=== PATIENT | male | born 1955 | race Caucasian/White ===

== ENCOUNTER → 2025-02-10 09:37 | Outpatient (REF) | payer MEDICARE, OTHER, SELFPAY | LOC: RAD 09:37 | PROVIDERS: ATTENDING PHYSICIAN Physician Assistant | DX: M25.551 Pain in right hip (principal) | CPT/HCPCS: 73502 ==

== ENCOUNTER 2025-05-24 16:18 | Emergency (ER) | payer MEDICARE, OTHER, SELFPAY ==
[2025-05-24 16:22] VITALS: BP 140/75
[2025-05-24 17:03] LABS: Hematocrit 44.6 % (39.0-52.0); Hemoglobin 14.7 g/dL (13.0-18.0); Mean Corp Hgb Conc. 33.0 g/dL (33.0-37.0); Mean Corpuscular Volume 85.9 fL (80.0-94.0); Nucleated Red Blood Cells % 0 % (-); Platelet Count 220 10^3/uL (130-400); Red Cell Dist. Width 13.2 % (11.5-14.5)
[2025-05-24 17:10] LABS: INR 0.96; PT 13.1 Sec (11.4-14.6)
[2025-05-24 17:11] LABS: APTT 24.1 Sec (23.4-35.0)
[2025-05-24 17:33] LABS: ALT (SGPT) 36 U/L (0-50); AST (SGOT) 24 U/L (17-59); Albumin 4.6 g/dl (3.5-5.0); Alkaline Phosphatase 54 U/L (38-126); Blood Urea Nitrogen 20 mg/dl (9-20); Calcium 10.1 mg/dl (8.4-10.2); Carbon Dioxide 30 mmol/L (22-30); Chloride 98 mmol/L (98-107); Glucose 120 mg/dl (70-99); Potassium 3.7 mmol/L (3.5-5.1); Sodium 137 mmol/L (135-145); Total Protein 7.1 g/dl (6.3-8.2); eGFR > 60.00
[2025-05-24 19:46] VITALS: BP 120/70
[2025-05-24 20:13] VITALS: BMI 26.4
[2025-05-24 20:26] VITALS: BP 128/76
--- NOTE | 2025-05-24 20:36 | ED.CVA ---
History of Present Illness
General
Chief Complaint: CVA/TIA Symptoms
Source: patient
Time Seen by Provider: 05/24/25 20:14
Onset of Stroke Symptoms
Onset of symptoms known: No
Time pt last seen normal is known: No
History of Present Illness
History of Present Illness:
69-year-old male presents to the emergency room for evaluation after having periods of staring and unresponsiveness. Symptoms lasted about 5 minutes or so and then he gradually returned to normal. He does not have a complete loss of consciousness.
He does not have any observed tonic-clonic activity. Patient had an episode about 2 weeks ago for which he was seen at [facility]. A workup which was negative at that time. He followed up with his primary care provider who recommended an
EEG. The patient called the scheduled a couple times but was on hold for too long and hung up. Today he has had 2 episodes. In between he is back to baseline. No focal weakness numbness or tingling. Patient denies any head trauma.
Past History
Past History
ED Past Medical History: HTN
Social History
Tobacco: Non-smoker
Personal:
Employment: Employed
Phy Exam
Physical Exam
Physical Exam:
General: Awake, Alert, Oriented X3. No acute distress.
Vitals: unremarkable
Head: Atraumatic
Eyes: Pupils equal, EOMI
Throat: Airway intact, no exudates
Neck: Trachea midline
Lungs: Clear and equal b/l
Heart: Regular rate, no murmurs
Abd: Soft, Nontender, No pulsatile mass
Neuro: Cranial nerves intact, muscle strength equal bilaterally, cerebellar exam normal
Skin: Warm, dry, no rash
Extremities: pulses equal b/l, no edema
Course
Orders/Labs/Results
Orders:
Orders
05/24/25 16:36
Complete Blood Count/With Diff Urgent
Comprehensive Metabolic Panel Urgent
PTT Urgent
Prothrombin Time Urgent
05/24/25 20:35
Levetiracetam [Keppra] 1,000 mg PO NOW STA
Abnormal Lab Results
05/24/25
16:36
Abs Immat Gran (auto) 0.1 H 10^3/uL
(0-0.05)
Absolute Neuts (auto) 8.3 H 10^3/uL
(1.4-6.5)
Absolute Monos (auto) 0.7 H 10^3/uL
(0.1-0.6)
Immature Gran % 0.7 H %
(0-0.5)
Neutrophils % 80.1 H %
(42.2-75.2)
Lymphocytes % 11.5 L %
(20.5-51.1)
Glucose 120 H mg/dl
(70-99)
05/24/25 16:36
05/24/25 16:36
Vital Signs
Initial and Last Documented VS:
Initial Vital Signs
Temp Pulse Resp BP Pulse Ox
98.5 F 67 18 140/75 98
05/24/25 16:22 05/24/25 16:22 05/24/25 16:22 05/24/25 16:22 05/24/25 16:22
Last Documented Vital Signs
Temp Pulse Resp BP Pulse Ox
98.7 F 58 12 137/79 100
05/24/25 19:46 05/24/25 20:45 05/24/25 20:45 05/24/25 21:00 05/24/25 20:51
MDM/Problems Addressed
Differential Diagnosis Includes:
Simple seizures, transient global amnesia, electrolyte abnormality, cognitive impairment
MDM/Problems Addressed:
Patient presents with episodes that sound very much like partial seizures. Discussed with Dr. Howell. He agrees with starting Keppra at this point. Informed patient we will be required to filiform with pen that that he is unable to drive until
cleared by neurology. No imaging performed here as the patient had a CT scan of the brain just a couple weeks ago. Rather than repeating a CT scan the patient should probably have an MRI of the brain as an outpatient. Patient also should schedule
the EEG as an outpatient.
*Pulse Oximetry
SaO2: 99
Oxygen Mode of Delivery: Room air
Patient hypoxic: no
*Critical Care Note
Total Time (30-74mins, 75-104mins- exclusive of procedures): Not Applicable
ED Attending Note
-
Portions of this chart may have been created with voice recognition software.� Occasional wrong word or��sound alike� substitutions may have occurred due to the inherent limitations of voice recognition software.
Discharge Plan
Departure
Patient Disposition: Home (Routine Discharge)
Date of Disposition: 05/24/25
Time of Disposition: 20:36
Patient with high blood pressure during this ER visit?: No
Condition: Good
Discharge Problem:
Simple partial seizures
Instructions: Seizures in adults - ED discharge instructions
Prescriptions:
New
levetiracetam [Keppra] 500 mg tablet
500 mg PO BID Qty: 60 0RF
No Action
multivitamin 1 EACH tablet
1 ea PO DAILY
aspirin 81 MG tablet,delayed release (DR/EC)
81 mg PO DAILY
STOOL SOFTENER
1 tab PO DAILY
Patient Comments:
OTC-pt does not know dose
valsartan 80 MG tablet
80 mg PO DAILY
Triam/Hctz
1 tab PO DAILY
Patient Comments:
(Triam/Hctz 37.5/25 cap)
Referrals:
Makenna Shelton MD [Non-Admitting Privileges, Psychiatry]
Amado Gallagher MD [Active, Neurology]
Activity Restrictions/Additional Instructions:
Your symptoms are very suggestive of simple seizures. I discussed with our neurologist Dr. Gallagher and he has suggested we start a seizure medication, Keppra, which you should take twice a day. You need to follow up with neurologist.
Interventions
Interventions:
*Risk Screen - Suicide Last Done: 05/24/25 16:22
*General Assessment Last Done: 05/24/25 16:22
*Neglect/Abuse Screening Last Done: 05/24/25 20:14
*ED- Fall Risk Assessment Last Done: 05/24/25 20:14
*ED COVID-19 Vaccine History Last Done: 05/24/25 20:14
*Nursing Disposition Last Done: 05/24/25 21:24
ED- Pulmonary Assessment Last Done: 05/24/25 20:15
ED- Neurological Assessment Last Done: 05/24/25 20:15
ED- Cardiac Assessment Last Done: 05/24/25 20:15
ED Swallowing Screen Last Done: 05/24/25 20:15
Discharge Date and Time
Discharge Date/Time: 05/24/25 21:25
Print Language: ALGERIAN
[2025-05-24 21:00] VITALS: BP 137/79
[2025-05-24] MEDS: KEPPRA 1000 MG PO (21:07)
== END 2025-05-24 21:25 | disposition home or self-care (01) ==
LOC: EMR 16:18
PROVIDERS: Student in an Organized Health Care Education/Training Program; EMERGENCY PHYSICIAN Emergency Medicine; FAMILY PHYSICIAN Internal Medicine
DX: G40.109 Localization-related (focal) (partial) symptomatic epilepsy and epileptic syndromes with simple partial seizures, not intractable, without status epilepticus (principal); I10 Essential (primary) hypertension; Z79.82 Long term (current) use of aspirin
CPT/HCPCS: 99283; 80053; 85025; 85610; 85730

== ENCOUNTER → 2025-05-26 10:17 | Outpatient (REF) | payer MEDICARE, OTHER, SELFPAY ==
--- NOTE | 2025-05-26 15:45 | EEG.RPT ---
Electroencephalogram Report
Recording
Date of EE05/26/25
Type of EEG: Routine
Length of EEG recordin minutes
Done with Video Recording: Yes
Patient Status: Outpatient
Recording Conditions: Awake, Drowsy and Asleep
Hyperventilation Performed: No
Photic Stimulation Performed: Yes
Report
LESS THAN 1 HOUR EEG INTERPRETATION:
Unremarkable EEG for age
CLINICAL CORRELATION:
A normal EEG does not rule out a diagnosis of epilepsy. If clinical suspicion for seizure persists, a prolonged recording may be warranted.
Clinical correlation is advised.
METHODS:
A 21 channel digitized electroencephalogram (EEG) was performed using the 10/20 international system of electrode placement and one-lead of ECG recorded. The [employer] quantitative EEG system was utilized.
ELECTROENCEPHALOGRAPHER IMPRESSION(S):
Quality of study
Good
Background
There was an unremarkable anterior-posterior voltage gradient of alpha frequency.
With eye opening the background activity changed to a low voltage mixture of frequencies.
There were no significant asymmetries of background activity noted.
Sleep
Drowsiness present
Stage 1 present
Stage 2 present
Hyperventilation
No activation
Photic Stimulation
No activation
ECG
Normal sinus rhythm
== END ==
LOC: EEG 10:17
PROVIDERS: ATTENDING PHYSICIAN Internal Medicine
DX: G40.A09 Absence epileptic syndrome, not intractable, without status epilepticus (principal)
CPT/HCPCS: 95816

== ENCOUNTER → 2025-07-03 07:16 | Outpatient (REF) | payer MEDICARE, OTHER, SELFPAY | LOC: MRI 07:16 | PROVIDERS: ATTENDING PHYSICIAN Internal Medicine | DX: R56.9 Unspecified convulsions (principal); E78.2 Mixed hyperlipidemia | CPT/HCPCS: 70551 ==

== ENCOUNTER 2025-07-17 00:58 | Inpatient (IN) | payer MEDICARE, OTHER, SELFPAY ==
[2025-07-16 18:59] VITALS: BP 128/77
[2025-07-16 19:26] LABS: Hematocrit 42.7 % (39.0-52.0); Hemoglobin 14.4 g/dL (13.0-18.0); Mean Corp Hgb Conc. 33.7 g/dL (33.0-37.0); Mean Corpuscular Volume 84.1 fL (80.0-94.0); Nucleated Red Blood Cells % 0 % (-); Platelet Count 219 10^3/uL (130-400); Red Cell Dist. Width 12.5 % (11.5-14.5)
[2025-07-16 19:29] LABS: Urine Character Clear (Clear)
[2025-07-16 19:44] LABS: ALT (SGPT) 38 U/L (0-50); AST (SGOT) 25 U/L (17-59); Albumin 4.6 g/dl (3.5-5.0); Alkaline Phosphatase 55 U/L (38-126); Blood Urea Nitrogen 17 mg/dl (9-20); Calcium 10.1 mg/dl (8.4-10.2); Carbon Dioxide 30 mmol/L (22-30); Chloride 98 mmol/L (98-107); Glucose 155 mg/dl (70-99); Potassium 4.1 mmol/L (3.5-5.1); Sodium 135 mmol/L (135-145); Total Protein 7.1 g/dl (6.3-8.2); eGFR > 60.00
[2025-07-16 19:48] LABS: Urine Red Blood Cell 0-2 /HPF (0-2); Urine Squamous Cell 0-2 /LPF (Few); Urine White Cell 0-2 /HPF (0-5)
[2025-07-16 23:05] VITALS: BP 121/85
[2025-07-16 23:06] VITALS: BMI 27.6
--- NOTE | 2025-07-16 23:20 | ED.GENMED ---
History of Present Illness
<Shannon Robb PA-C - Last Filed: 07/17/25 02:17>
General
Chief Complaint: Seizure
Source: patient
Exam Limitations: none
Time Seen by Provider: 07/16/25 23:03
History of Present Illness
History of Present Illness:
69yoM with a history of hypertension and hyperlipidemia presenting for evaluation after an episode of confusion. Patient has been having intermittent episodes of confusion dating back to the end of April. The episodes are described as him 'blanking
out.' He apparently is able to have a conversation during the episodes but he is confused and asking repetitive questions. He has no associated convulsions or incontinence and he maintains his posture throughout the episode. He had an episode of
05/24/25 and was seen in the ED at that time. Symptoms were thought to be secondary to simple partial seizures and he was initiated on Keppra 500mg BID. He did not have another episode up until last night. The episode last night lasted about a
minute and he had another episode today which lasted for 5 minutes. He is now back to baseline and states he feels normal. He denies any headache, dizziness, speech disturbance, balance issues, weakness. He had an MRI brain on 07/03/25 which was
negative for acute findings. He also had an EEG which was reportedly normal. He has an appointment with neurologic scheduled in 1 month.
Past History
<Shannon Robb PA-C - Last Filed: 07/17/25 02:17>
Past History
ED Past Medical History: HTN
Social History
Tobacco: Non-smoker
Personal:
Employment: Employed
Phy Exam
<Shannon Robb PA-C - Last Filed: 07/17/25 02:17>
General Physical Exam
General Presentation: well appearing and no apparent distress
General Skin: warm and dry
General Habitus: normal
General Mental: alert
ENT Exam
ENT Exam: normocephalic
Eye Exam
Eye Exam: PERRL and conjunctiva normal
Cardiovascular Exam
Cardiovascular Exam: regular rate/rhythm and no murmur
Pulmonary Exam
Pulmonary Exam: lungs clear, no respiratory distress, no rales, no crackles, no rhonchi and no wheezing
Neurological Exam
Neurological Exam: alert, no motor deficits, speech normal and other (CN 2-12 intact. 5/5 strength in all extremities. Normal finger to nose and heel to swan bilaterally. )
Ya Coma Scale
Eye Opening: Spontaneous
Verbal Response: Oriented
Motor Response: Obeys Commands
GCS Total Score: 15
Skin Exam
Skin Exam: normal color and warm/dry
Psychiatric Exam
Psychiatric Exam: normal mood/affect
Course
Shantellelt;Shannon Robb PA-C - Last Filed: 07/17/25 02:17>
Orders/Labs/Results
Orders:
Orders
07/16/25 19:12
Complete Blood Count/With Diff Urgent
Comprehensive Metabolic Panel Urgent
07/16/25 19:20
Urinalysis Reflex To Culture Urgent
Date Specimen was Collected: 07/16/25
Time Specimen was Collected: 19:05
Urine Microscopic Reflex Cult Urgent
07/16/25 23:33
Ceribell [Rapid Point of Care EEG (ED/ICU ONLY)] Q1H
Indications for use:: Altered Mental Status
07/16/25 23:34
Levetiracetam Injectable [Keppra] 1,000 mg IV NOW STA
07/17/25 00:26
Admit/Transfer Patient As Directed
Co-Sign Provider:
Level of Care: Inpatient admission
Assign to:: ICU
Physician / Group: Luz
Diagnosis: Seizure
Reason for Hospitalization: Seizure
Expected length of stay greater than two midnights?: Yes
ELOS- Estimated Length of Stay in days: 2
I certify the patient meets the requirements for IP care: Yes
07/17/25 00:27
PRN Pain Medication Management As Directed
May give lesser potent ordered pain med per pt: Yes
preference::
Protocol:: Medication orders for pain may be administered in a
manner that supports deferring to patient preference
when the pt is:
- Requesting an ordered lesser potent pain medication.
Least to most potent pain medications are defined
as: acetaminophen < NSAID < tramadol < opioids
(morphine, oxycodone, hydromorphone).
- Requesting a lesser dose of the same medication IF
ORDERED.
- Requesting a less intrusive route of administration
if both routes are prescribed by the provider (PO <
IV).
07/17/25 00:28
Code Status As Directed
Resuscitation Status: Full Code
07/17/25 01:40
Acetaminophen [Tylenol] 650 mg PO Q4HPRN PRN
Bisacodyl [Dulcolax] 10 mg RECTAL [id number] PRN
Docusate W/Senna [Senokot-S] 1 tablet PO BIDPRN PRN
Polyethylene Glycol Powder [Miralax] 17 grams PO DAILYPRN PRN
07/17/25 01:40
Consult Notification Routine
Specialty to Notify: Neurology
NEUROLOGY CONSULT Routine
Consulting Provider: Arely Craft
Was physician already notified: No
Reason for consult: recurrent episodes of partial seizures, takes keppra at home.
Activity As Directed
Activity Level: With Assistance
Neurological Checks As Directed
Frequency: Per unit guidelines
Vital Signs As Directed
Frequency: Per unit guidelines
DX Deep Vein Thrombosis Video Routine
07/17/25 Breakfast
Regular
Basic Metabolic Panel IN AM
Complete Blood Count/No Diff IN AM
Creatine Phosphokinase IN AM
ESR [Erythrocyte Sed Rate] IN AM
Magnesium IN AM
TSH IN AM
07/17/25 08:00
Aspirin Low Dose EC [Aspir Low (Enteric Coated)] 81 mg PO DAILY
Triamterene/Hctz [Dyazide] 1 capsule PO DAILY
Valsartan [Diovan] 80 mg PO DAILY
07/17/25 11:00
Levetiracetam Injectable [Keppra] 1,000 mg IV Q12
07/17/25 18:00
Enoxaparin Sodium [Lovenox] 40 mg SC QPM
Abnormal Lab Results
07/16/25 07/16/25
19:12 19:20
Absolute Monos (auto) 0.7 H 10^3/uL
(0.1-0.6)
Neutrophils % 76.8 H %
(42.2-75.2)
Lymphocytes % 13.8 L %
(20.5-51.1)
Glucose 155 H mg/dl
(70-99)
Urine Urobilinogen 2+ A
(Neg - 1+)
Urine Bacteria (Reflex) Few A
(Negative)
Urine Albumin (Reflex) 1+ A
(Neg - Trace)
07/16/25 19:12
07/16/25 19:12
Vital Signs
Initial and Last Documented VS:
Initial Vital Signs
Temp Pulse Resp BP Pulse Ox
98.0 F 70 20 128/77 97
07/16/25 18:59 07/16/25 18:59 07/16/25 18:59 07/16/25 18:59 07/16/25 18:59
Last Documented Vital Signs
Temp Pulse Resp BP Pulse Ox
98.0 F 59 16 132/83 98
07/16/25 18:59 07/17/25 00:45 07/17/25 00:45 07/17/25 00:00 07/17/25 00:45
<Roscoe Zendejas MD - Last Filed: 07/16/25 23:35>
Orders/Labs/Results
Orders:
Orders
07/16/25 19:12
Complete Blood Count/With Diff Urgent
Comprehensive Metabolic Panel Urgent
07/16/25 19:20
Urinalysis Reflex To Culture Urgent
Date Specimen was Collected: 07/16/25
Time Specimen was Collected: 19:05
Urine Microscopic Reflex Cult Urgent
07/16/25 23:33
Ceribell [Rapid Point of Care EEG (ED/ICU ONLY)] Q1H
Indications for use:: Altered Mental Status
07/16/25 23:34
Levetiracetam Injectable [Keppra] 1,000 mg IV NOW STA
07/17/25 00:26
Admit/Transfer Patient As Directed
Co-Sign Provider:
Level of Care: Inpatient admission
Assign to:: ICU
Physician / Group: Luz
Diagnosis: Seizure
Reason for Hospitalization: Seizure
Expected length of stay greater than two midnights?: Yes
ELOS- Estimated Length of Stay in days: 2
I certify the patient meets the requirements for IP care: Yes
07/17/25 00:27
PRN Pain Medication Management As Directed
May give lesser potent ordered pain med per pt: Yes
preference::
Protocol:: Medication orders for pain may be administered in a
manner that supports deferring to patient preference
when the pt is:
- Requesting an ordered lesser potent pain medication.
Least to most potent pain medications are defined
as: acetaminophen < NSAID < tramadol < opioids
(morphine, oxycodone, hydromorphone).
- Requesting a lesser dose of the same medication IF
ORDERED.
- Requesting a less intrusive route of administration
if both routes are prescribed by the provider (PO <
IV).
07/17/25 00:28
Code Status As Directed
Resuscitation Status: Full Code
07/17/25 01:40
Acetaminophen [Tylenol] 650 mg PO Q4HPRN PRN
Bisacodyl [Dulcolax] 10 mg RECTAL [id number] PRN
Docusate W/Senna [Senokot-S] 1 tablet PO BIDPRN PRN
Polyethylene Glycol Powder [Miralax] 17 grams PO DAILYPRN PRN
07/17/25 01:40
Consult Notification Routine
Specialty to Notify: Neurology
NEUROLOGY CONSULT Routine
Consulting Provider: Arely Craft
Was physician already notified: No
Reason for consult: recurrent episodes of partial seizures, takes keppra at home.
Activity As Directed
Activity Level: With Assistance
Neurological Checks As Directed
Frequency: Per unit guidelines
Vital Signs As Directed
Frequency: Per unit guidelines
DX Deep Vein Thrombosis Video Routine
07/17/25 Breakfast
Regular
Basic Metabolic Panel IN AM
Complete Blood Count/No Diff IN AM
Creatine Phosphokinase IN AM
ESR [Erythrocyte Sed Rate] IN AM
Magnesium IN AM
TSH IN AM
07/17/25 08:00
Aspirin Low Dose EC [Aspir Low (Enteric Coated)] 81 mg PO DAILY
Triamterene/Hctz [Dyazide] 1 capsule PO DAILY
Valsartan [Diovan] 80 mg PO DAILY
07/17/25 11:00
Levetiracetam Injectable [Keppra] 1,000 mg IV Q12
07/17/25 18:00
Enoxaparin Sodium [Lovenox] 40 mg SC QPM
Abnormal Lab Results
07/16/25 07/16/25
19:12 19:20
Absolute Monos (auto) 0.7 H 10^3/uL
(0.1-0.6)
Neutrophils % 76.8 H %
(42.2-75.2)
Lymphocytes % 13.8 L %
(20.5-51.1)
Glucose 155 H mg/dl
(70-99)
Urine Urobilinogen 2+ A
(Neg - 1+)
Urine Bacteria (Reflex) Few A
(Negative)
Urine Albumin (Reflex) 1+ A
(Neg - Trace)
07/16/25 19:12
07/16/25 19:12
Vital Signs
Initial and Last Documented VS:
Initial Vital Signs
Temp Pulse Resp BP Pulse Ox
98.0 F 70 20 128/77 97
07/16/25 18:59 07/16/25 18:59 07/16/25 18:59 07/16/25 18:59 07/16/25 18:59
Last Documented Vital Signs
Temp Pulse Resp BP Pulse Ox
98.0 F 59 16 132/83 98
07/16/25 18:59 07/17/25 00:45 07/17/25 00:45 07/17/25 00:00 07/17/25 00:45
<Shannon Robb PA-C - Last Filed: 07/17/25 02:17>
MDM/Problems Addressed
Differential Diagnosis Includes:
69yoM here with increasing episodes of confusion. Started at end of April. Seen in ED on 05/24 and diagnosed with simple partial seizure and started on Keppra. No further episodes up until last night. Two episodes since yesterday. Currently
asymptomatic. VSS. He is awake, alert, with a GCS of 15. No focal neurologic deficits noted. Differential diagnosis includes but is not limited to: Focal seizures, TIA, arrhythmia
Labs obtained in triage which are unremarkable. After initial exam, I was called to bedside by son due to a recurrent episode of confusion. On reassessment, patient is awake and making eye contact. He was able to state his name but unable to answer
any further questions. No tonic clonic activity noted. Episode lasted about 2 minutes. Patient confused and asking repetitive questions afterwards and did not remember that he was in the hospital. Given that he has had 3 episodes in the past 24
hours, will admit. 1g IV Keppra load ordered. Ceribell placed without any evidence of active seizures.
<Shannon Robb PA-C - Last Filed: 07/17/25 02:17>
*Pulse Oximetry
SaO2: 99
Oxygen Mode of Delivery: Room air
Patient hypoxic: no
*EKG
Interpreted by ED Provider?: Yes
EKG Intrepretation Date: 07/16/25
Heart Rate: 58
Rate: bradycardiac
Rhythm: sinus
[place]: normal axis
Interval: normal interval
QRS Pattern: normal QRS
Ischemia: no ischemia
*Critical Care Note
Total Time (30-74mins, 75-104mins- exclusive of procedures): Not Applicable
ED Attending Note
<Shannon Robb PA-C - Last Filed: 07/17/25 02:17>
-
Portions of this chart may have been created with voice recognition software.� Occasional wrong word or��sound alike� substitutions may have occurred due to the inherent limitations of voice recognition software.
<Roscoe Zendejas MD - Last Filed: 07/16/25 23:35>
ED Attending Note
Patient seen and examined by attending physician: Yes
I performed the substantive portion of visit, reviewed & personally made and approve the management plan that is documented in note by myself or BECKY.: Yes
ED Attending Note:
Patient with a recent diagnosis of seizures. Partial seizures. Had 1 episode last night. 1 today and actually 1 while we were in the ER. This was an episode of staring nonresponsiveness but eyes open no tonic-clonic activity. When he did wake
up a few minutes later he was clearly postictal. He has had recent MRIs and EEGs. He takes Keppra 500 twice daily. He is nonfocal. He is warm and dry perfusing well. No respiratory distress. Good strong pulse during this episode. No
arrhythmias. Given 3 episodes in the last less than 24 hours patient warrants inpatient monitoring. We will give him a gram of Keppra now
Discharge Plan
Departure
Patient Disposition: Admit
Date of Disposition: 07/16/25
Time of Disposition: 23:40
Presentation/result/management discussed w/ accepting MD/DO: Hospitalist
Discharge Problem:
Simple partial seizures
Interventions
Interventions:
*Risk Screen - Suicide Last Done: 07/16/25 23:06
*General Assessment Last Done: 07/16/25 23:06
*Neglect/Abuse Screening Last Done: 07/16/25 23:06
*ED- Fall Risk Assessment Last Done: 07/16/25 23:06
*ED COVID-19 Vaccine History Last Done: 07/16/25 23:06
*Nursing Disposition Last Done: 07/17/25 01:59
ED- Cardiac Assessment Last Done: 07/16/25 23:06
ED- Neurological Assessment Last Done: 07/16/25 23:06
ED- Pulmonary Assessment Last Done: 07/16/25 23:06
Discharge Date and Time
Discharge Date/Time: 07/17/25 02:01
[2025-07-16] MEDS: KEPPRA 1000 MG IV (23:52)
[2025-07-17] VITALS (14 sets, daily range): BP systolic 108–132; BP diastolic 68–90; BMI 25.7
--- NOTE | 2025-07-17 00:19 | HPS.HSE ---
Family Physician
-
Family Physician: Jeffrey Albright
Chief Complaint
-
Seizure
History of Present Illness
This is a 69-year-old with past medical history significant for hypertension, hyperlipidemia who presents to the emergency department with 2 episodes of what appears to be partial/tearing seizures and had a witnessed episode in the emergency
department.
Patient was initially diagnosed with possible simple partial seizures typified by short duration of nonresponsiveness with staring but no loss of consciousness and then post episode confusion lasting for several minutes. He had 2 episodes and was
placed on Keppra in May. Since then he has not had any episodes up until today when he had 2 episodes at home and 1 witnessed episode in the emergency department. Patient reports compliance with his Keppra. He did have a follow-up MRI 2 weeks
ago that shows no acute intracranial process. There were no masses. There were no abnormalities or signs of infection. Patient also reports having an EEG done but is not clear on the results. He reports no new medications other than the Keppra
which he has been taking.
Today family reports very similar presentation that occurred. Room and then again on the way to the emergency department. In the emergency department staff and family had a witnessed episode that lasted for about 2 minutes again typified by
staring and not responding to voice. He was able to have his eyes move around but is not moving anything else. After the episode he has some confusion which has not resolved. Patient does not remember what happened with the episode or immediately
after.
In the emergency department he had stable vital signs with a blood pressure of 120/89 and a pulse of 54 and he was satting 99% on room air. CBC was unremarkable, electrolytes BUN and creatinine were normal UA was unremarkable.
Medical History
Past Medical History
Past Medical History: Reports HTN
Past Surgical History: Reports None
Social History
Tobacco: Former Smoker
Alcohol: Occasional
Drug: None
Personal:
Living: With Family
Family History
Family History: Not pertinent
Allergies / Home Medications
Allergies reflects when Allergies were last updated in [employer].
Home Medications with original date entered in [employer]
Allergy/Medication List:
Allergies
Allergy/AdvReac Type Severity Reaction Status Date / Time
No Known Allergies Allergy Verified 07/16/25 18:58
Home Medications
Triam/Hctz 1 tab PO DAILY 09/14/10
aspirin 81 mg tablet,delayed release 81 mg PO DAILY 09/14/10
valsartan 80 mg tablet 80 mg PO DAILY 09/14/10
levetiracetam 500 mg tablet (Keppra) 500 mg PO BID #60 tabs 05/24/25
Review of Systems
-
Constitutional: Reports No Symptoms
EENT: Reports No Symptoms
Respiratory: Reports No Symptoms
Cardiac: Reports No Symptoms
Abdomen/GI: Reports No Symptoms
: Reports No Symptoms
Musculoskeletal: Reports No Symptoms
Skin: Reports No Symptoms
Neurological: Reports No Symptoms
Endocrine: Reports No Symptoms
Hematologic/Lymphatic: Reports No Symptoms
Psych: Reports No Symptoms
Physical Exam
Vital Signs
Vital Signs
Temp Pulse Resp BP Pulse Ox
98.0 F 58 16 132/83 100
07/16/25 18:59 07/17/25 00:00 07/17/25 00:00 07/17/25 00:00 07/17/25 00:00
Physical Exam
General: Well Developed, Well Nourished and No Apparent Distress
HEENT: NormoCephalic, Moist mucous membranes and Atraumatic
Respiratory: Clear
Cardiac: S1/S2 and Regular Rhythm; No Murmur or Rub
GI: Soft, Non Tender, Non Distended and Normal Bowel Sounds; No Organomegaly
Rectal: Deferred by Provider
Musculoskeletal: No Clubbing, No Cyanosis and No Edema
Skin: No Rash
Neuro: AO x 3, No Motor Deficits, Nonfocal/grossly intact, Cranial Nerves Intact, No Sensory Deficits and DTR's Intact & Symmetrical; No Slurred Speech, Facial Droop or Tremors
Psych: Calm
Laboratory Results
-
07/16/25 19:12
07/16/25 19:12
Laboratory Results
Total Bilirubin 0.6 mg/dl (0.2-1.3) 07/16/25 19:12
AST 25 U/L (17-59) 07/16/25 19:12
ALT 38 U/L (0-50) 07/16/25 19:12
Alkaline Phosphatase 55 U/L (38-126) 07/16/25 19:12
Data Reviewed
-
MRI: Report Reviewed by me
Lab Data: Labs Reviewed by me
Old Records: Reviewed
Impression/Plan
-
IMPRESSION:
69-year-old with recent development of staring episodes with nonresponsiveness lasting minutes and associated with confusion and memory deficits surrounding the episodes consistent with simple/complex partial seizures without any ictal activity. He
has had some workup with MRI and EEG done has not been revealing the patient has been on Keppra 500 mg twice daily for over a month. He had 3 episodes of this seizure-like activity today had 1 weakness in the emergency department.
PLAN:
Seizures -suspect partial seizures as there is no loss of consciousness, tonic-clonic activity. There is concern for progression to generalization.
- Admit to ICU
- continous EEG
- Neurochecks every 4 to 6 hours
- Keppra 1000 mg IV every 12 for now
- Check ESR, TSH
- Neurology consult
DVT prophylaxis�Lovenox
CODE STATUS�full code
--- NOTE | 2025-07-17 02:00 | PTCARENOTE ---
pt admit to ICU. aaox3, MULLINS, Neuro check WNL. arrives with Ceribell in place- 0% sz burden. SB HR 50s. RA Sat 97%. EKG, CHG cloths. POC discussed, care ongoing.
[2025-07-17 02:03] LABS: Glucose - Point of Care 121 mg/dl (70-99)
--- NOTE | 2025-07-17 04:00 | PTCARENOTE ---
No changes in pt assessment. Sz burden continues to be 0% on Ceribell.
[2025-07-17 04:26] LABS: INR 1.11; PT 14.6 Sec (11.4-14.6)
[2025-07-17 04:27] LABS: APTT 29.5 Sec (23.4-35.0)
[2025-07-17 04:32] LABS: Hematocrit 38.6 % (39.0-52.0); Hemoglobin 13.2 g/dL (13.0-18.0); Mean Corp Hgb Conc. 34.2 g/dL (33.0-37.0); Mean Corpuscular Volume 82.7 fL (80.0-94.0); Platelet Count 169 10^3/uL (130-400); Red Cell Dist. Width 12.3 % (11.5-14.5)
[2025-07-17 04:39] LABS: Blood Urea Nitrogen 16 mg/dl (9-20); Calcium 9.3 mg/dl (8.4-10.2); Carbon Dioxide 26 mmol/L (22-30); Chloride 100 mmol/L (98-107); Estimated Creatinine Clearance 101 ml/min; Glucose 108 mg/dl (70-99); Magnesium 2.0 mg/dl (1.6-2.3); Potassium 3.5 mmol/L (3.5-5.1); Sodium 133 mmol/L (135-145); eGFR > 60.00
[2025-07-17 05:25] LABS: TSH 1.79 uIU/ml (0.47-4.68)
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
[2025-07-17] MEDS: DYAZIDE 1 CAPSULE PO (08:15)
[2025-07-17] MEDS: ASPIR LOW (ENTERIC COATED) 81 MG PO (08:15)
[2025-07-17] MEDS: DIOVAN 80 MG PO (08:15)
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
--- NOTE | 2025-07-17 09:00 | PTCARENOTE ---
Rec'd pt at 0730 initially dozing but awakens easily to verbal stimuli and is alert and oriented. No c/o pain or discomfort. No c/o dizziness. IDRIS at 3mm. Ceribell monitor in place. 0% seizure burden noted on monitor. Site wnl. MULLINS. Skin is pink wm
and dry. Respirs are unlabored on RA with sats of 98%. BS are clear. Monitor SBrady mostly in the 50's. + pulses. No edema. Denies chest pain. Abd is soft with + BS. Denies nausea. Voiding yellow urine in the urinal. Capped int intact L hand. Site
wnl. Pt able to turn and reposition himself. Plan of care reviewed and call sheppard reach.
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
--- NOTE | 2025-07-17 10:49 | W.PN.HOSP.TC ---
Today's Communication/Plan
-
d/c
Assessment / Plan
Assessment / Plan
Gen: NAD, AAOx3.
Eyes: EOMI, PERRLA, no scleral icterus.
Neck: supple.
CV: RRR, +S1/S2, no m/r/g.
Resp: CTAB, no rales, wheezes, or rhonchi.
Abd: +BS, soft, NT, ND
Skin: No rashes.
Neuro: CN 2-12 intact, non-focal.
Psych: Normal mood and affect.
MRI brain 07/03: Mild cerebral atrophy. A few small cerebral white matter lesions are noted on the left side. In this 69-year-old patient, these findings are probably related to chronic small vessel ischemia. No evidence for cerebrovascular accident.
Hippocampi are normal in appearance.
CXR: No acute disease of the chest. Mild cardiomegaly. New.
Seizures, focal nonlesional epilepsy:
-was monitored in ICU on Ceribell. As per neuro, no seizure activity noted. Dr Craft has cleared the pt for discharge on Keppra 750mg BID (was on 500mg BID prior).
Essential HTN:
-cont Dyazide/Diovan
FULL/Lovenox
Total time spent on d/c = 36 min. This included today's physical exam, progress note, review of laboratory and diagnostic data, preparation of discharge documents and prescriptions, and discussions about the pt's hospital course and discharge plan
with the patient and other medical physiologist involved in the patient's care.
Anticipated Discharge: Today
Subjective/Interval History
-
Date of Service: July 17, 2025
No new complaints.
Objective Data
-
Labs:
Laboratory Results
07/17/25
04:01
WBC 6.8
Hgb 13.2
Hct 38.6 L
Plt Count 169 D
PT 14.6
INR 1.11
APTT 29.5
Sodium 133 L
Potassium 3.5
Chloride 100
Carbon Dioxide 26
BUN 16
Creatinine 0.7
Glucose 108 H
Calcium 9.3
Vital Signs:
Vital Signs
Temp Pulse Resp BP Pulse Ox
97.8 F 62 18 123/82 99
07/17/25 08:00 07/17/25 10:00 07/17/25 10:00 07/17/25 10:00 07/17/25 10:00
I&O
07/16/25 07/17/25 07/18/25
06:59 06:59 06:59
Output Total 900 / 900 250 / 250
Balance -900 / -900 -250 / -250
--- NOTE | 2025-07-17 11:00 | PTCARENOTE ---
Abel Craft and Jovanny in to see pt and updated. No episodes of seizure activity noted. Pt remains alert and oriented. No c/o dizziness or headache. Speech is clear and smile is even. HARPREET. Cerebell with 0% seizure activity- Per MD order Cerebell
removed. Good appetite for breakfast earlier. Pt visiting with family
[2025-07-17] MEDS: KEPPRA 750 MG PO (11:19)
--- NOTE | 2025-07-17 12:00 | PTCARENOTE ---
Pt assisted oob to the bathroom around 1130 and did own oral care and am care. Gait is steady with no c/o dizziness. Dr. Rodriguez in and plan is for discharge later today. Currently oob in the chair. Assessment is unchanged otherwise. Call sheppard in reach
--- NOTE | 2025-07-17 13:30 | PTCARENOTE ---
Dc orders written and reviewed with pt and pts /daughter. Verbalized understanding. Capped int removed from L hand. Site wnl. Belongings returned to pt from room. Pt dc'd via wheelchair to home. No other changes in assessment
== END 2025-07-17 13:30 | disposition home or self-care (01) | DRG 101 ==
LOC: ICU 00:58
PROVIDERS: Emergency Medicine; Nurse Practitioner Primary Care; ADMITTING PHYSICIAN Internal Medicine; ATTENDING PHYSICIAN Internal Medicine; CONSULT PHYSICIAN Internal Medicine Critical Care Medicine; CONSULT PHYSICIAN Psychiatry & Neurology Neurology; EMERGENCY PHYSICIAN Emergency Medicine; FAMILY PHYSICIAN Internal Medicine
DX: G40.209 Localization-related (focal) (partial) symptomatic epilepsy and epileptic syndromes with complex partial seizures, not intractable, without status epilepticus (principal); E87.1 Hypo-osmolality and hyponatremia; I10 Essential (primary) hypertension; E78.5 Hyperlipidemia, unspecified; Z85.46 Personal history of malignant neoplasm of prostate; E11.9 Type 2 diabetes mellitus without complications; F17.290 Nicotine dependence, other tobacco product, uncomplicated; G43.109 Migraine with aura, not intractable, without status migrainosus; G71.11 Myotonic muscular dystrophy; N40.0 Benign prostatic hyperplasia without lower urinary tract symptoms; Z79.82 Long term (current) use of aspirin; Z79.899 Other long term (current) drug therapy; Z82.49 Family history of ischemic heart disease and other diseases of the circulatory system; Z83.3 Family history of diabetes mellitus
CPT/HCPCS: 71045; 80048; 80053; 81003; 81015; 82550; 82962; 83735; 84443; 85025; 85027; 85610; 85652; 85730; 93005; 95705; 96374; 99285

== ENCOUNTER → 2025-09-08 10:41 | Outpatient (REF) | payer MEDICARE, OTHER, SELFPAY | LOC: RAD 10:41 | PROVIDERS: ATTENDING PHYSICIAN Internal Medicine | DX: M54.16 Radiculopathy, lumbar region (principal); M62.551 Muscle wasting and atrophy, not elsewhere classified, right thigh; M79.604 Pain in right leg; M16.11 Unilateral primary osteoarthritis, right hip | CPT/HCPCS: 72110 ==

== ENCOUNTER → 2025-09-08 13:11 | Outpatient (REF) | payer MEDICARE, OTHER, SELFPAY | LOC: EMG 13:11 | PROVIDERS: ATTENDING PHYSICIAN Internal Medicine | DX: M54.16 Radiculopathy, lumbar region (principal); M62.551 Muscle wasting and atrophy, not elsewhere classified, right thigh; M79.604 Pain in right leg; M16.11 Unilateral primary osteoarthritis, right hip; R20.0 Anesthesia of skin; G54.5 Neuralgic amyotrophy | CPT/HCPCS: 72110; 95886; 95910 ==

== ENCOUNTER → 2025-10-03 09:03 | Outpatient (REF) | payer MEDICARE, OTHER, SELFPAY | LOC: PAVMRI 09:03 | PROVIDERS: ATTENDING PHYSICIAN Internal Medicine | DX: M54.16 Radiculopathy, lumbar region (principal) | CPT/HCPCS: 72148 ==